=== PATIENT | male | born 1935 | race Caucasian/White ===

== ENCOUNTER 2024-05-07 13:15 | Emergency (ER) | payer OTHER ==
[~2024-05-07] VITALS: Ht 177.8 cm; Wt 86.0 kg
[2024-05-07 13:18] VITALS: O2SAT 97
[2024-05-07] MEDS: MECLIZINE 25MG TABLET PO ONE (13:38)
[2024-05-07 13:59] LABS: BASOPHILS % 0.5 % (0.0-2.0); DIFFERENTIAL COMMENT 0; EOSINOPHILS % 3.5 % (0.0-5.0); HEMATOCRIT. 43.5 % (42.0-52.0); HEMOGLOBIN. 14.5 g/dL (14.0-18.0); MEAN CORPUSCULAR HEMOGLOBIN 34.2 pg (28.0-32.0); MEAN CORPUSCULAR HGB CONC 33.2 g/dL (31.0-37.0); MEAN CORPUSCULAR VOLUME 102.9 fL (80.0-94.0); MONOCYTES % 9.9 % (2.0-8.0); NEUTROPHILS % 64.1 % (40.0-76.0); PLATELET 160 x1000/uL (130-400); RED BLOOD CELL COUNT 4.22 mill/uL (4.7-6.1); RED CELL DISTRIBUTION WIDTH 14.6 % (11.6-14.6); WHITE BLOOD COUNT 5.8 x1000/uL (4.5-11.0)
[2024-05-07 14:16] LABS: INR 1.1; PROTHROMBIN TIME 11.8 sec (9.6-11.0)
[2024-05-07 14:18] LABS: CHLORIDE 111 mEq/L (98-107); POTASSIUM 4.2 mEq/L (3.5-5.1); SODIUM 142 mEq/L (136-145)
[2024-05-07 14:19] LABS: CARBON DIOXIDE 24 mEq/L (21-32)
[2024-05-07 14:20] LABS: CALCIUM 9.3 mg/dL (8.7-10.4)
[2024-05-07 14:24] LABS: GLUCOSE 106 mg/dL (70-105); UREA NITROGEN BLOOD 20 mg/dL (9-23)
[2024-05-07 14:26] LABS: TROPONIN I HIGH SENSITIVITY 13 ng/L (3.0-53)
[2024-05-07] MEDS: HYDRALAZINE 20MG/ML VIAL IV ONE (17:30)
[2024-05-07 19:24] VITALS: TEMP 36.61404
[2024-05-07 19:35] VITALS: BP 146/78; PULSE 75; RESP 18; O2SAT 97
== END 2024-05-07 20:38 | disposition short-term general hospital (02) ==
LOC: ER 13:15 → EDBEDREQTM 18:52 → EDBEDREQ 18:52 → ER 20:38
DX: R42 Dizziness and giddiness (principal); R55 Syncope and collapse
CPT/HCPCS: 99285; 96374; 70450; 71045; 80048; 83880; 85025; 85610; 84484; 36415; 93005; J8597; J0360